=== PATIENT | male | born 1945 | race Caucasian/White ===

== ENCOUNTER 2017-05-04 14:57 | Emergency (ER) | payer MEDICARE, MEDICAID ==
[2017-05-04 14:59] VITALS: BP 174/85; PULSE 64; RESP 15; TEMP 98.2; O2SAT 98
--- NOTE | 2017-05-04 15:09 | PD ---
Physical Exam Date Seen by Provider: May 04, 2017 Time Seen by Provider: 15:04 Narrative Pt is a 72 year old male presenting to the ED for evaluation of BLE weakness. Pt states he was walking a his foot was dragging. He reports facial numbness, and a nose bleed this morning. VSS, awaiting bed placement. Data Data Last Documented VS Vital Signs Date Time Temp Pulse Resp B/P (MAP) Pulse Ox O2 Delivery O2 Flow Rate FiO2 05/04/17 14:59 98.2 64 15 174/85 (114) 98 MDM Supervised Visit with LISA: Alka Orta May 04, 2017 15:09
[2017-05-04] MEDS ORDERED: SODIUM CHLORIDE 0.9% FLUSH 10 ML FLUSH IVF PRN (15:30)
--- NOTE | 2017-05-04 15:42 | PD ---
HPI Chief Complaint: Neuro Symptoms/ Deficits Time Seen by Provider: 15:11 Travel History International Travel<30 days: No Contact w/Intl Traveler<30days: No Traveled to known affect area: No History of Present Illness HPI The patient is a 72-year-old male who presents to the emergency department for multiple complaints. The patient is currently visiting family from [place]. The patient states that on Thursday he was walking when he suddenly developed left-sided foot drop, this resolved. He then had right sided foot drop or his right foot caught several times, this then resolved. The patient states on Thursday he then developed a bloody nose which resolved on its own. The patient then complained of tinnitus from both ears which has resolved. The patient then felt like he had some numbness to the right side of the face and above the right eye which has persisted. The patient's daughter called his physician in [place] who recommended he come to the emergency department and be evaluated for a stroke. The patient does have a history of CAD with previous surgery as well as carotid stenosis at 69% per his report. The patient denies any acute weakness of the upper or lower extremities today, states his other symptoms have resolved except for the right facial numbness. Symptoms are mild to moderate, there are no current alleviating or exacerbating factors. PFSH Past Medical History Narrative Medical Hypertension, hyperlipidemia, diabetes, valve replacement Hx Anticoagulant Therapy: Yes Cardiovascular Problems: Yes Past Surgical History Narrative Surgical Valve replacement Social History Tobacco Use: No Allergies-Medications (Allergen,Severity, Reaction): Coded Allergies: No Known Allergies (Unverified , 05/04/17) Reported Meds & Prescriptions Reported Meds & Active Scripts Active Reported Glimepiride 4 Mg Tab 4 Mg PO DAILY Take with breakfast or first main meal Clopidogrel (Clopidogrel Bisulfate) 75 Mg Tab 75 Mg PO DAILY Isosorbide Mononitrate 20 Mg Tab 30 Mg PO DAILY Take 2 doses 7 hours apart. Pantoprazole (Pantoprazole Sodium) 40 Mg Tab 40 Mg PO DAILY Pravastatin 40 Mg Tab 40 Mg PO DAILY Metformin (Metformin HCl) 1,000 Mg Tab 1,000 Mg PO BIDPC With meals Tamsulosin (Tamsulosin HCl) 0.4 Mg Cap 0.4 Mg PO HS Metoprolol Tartrate 50 Mg Tab 50 Mg PO DAILY Vitamin D-1000 (Cholecalciferol) 1,000 Unit Tab 2,000 Units PO DAILY Aspirin Low Dose (Aspirin) 81 Mg Chew 81 Mg CHEW DAILY Review of Systems Except as stated in HPI: all other systems reviewed are Neg Eyes: No: Blurred Vision, Visual changes HENT: No: Headaches, Lightheadedness Cardiovascular: No: Chest Pain or Discomfort Respiratory: No: Shortness of Breath Gastrointestinal: No: Nausea, Vomiting, Abdominal Pain Neurologic: Positive: Paresthesia, Sensory Disturbance, No: Weakness, Change in Mentation, Slurred Speech Physical Exam Narrative GENERAL: Awake, alert, pleasant 72-year-old male who appears his stated age and is in no acute respiratory distress. SKIN: Focused skin assessment warm/dry. HEAD: Atraumatic. Normocephalic. EYES: Pupils equal and round. Pupils are 4 mm bilateral and reactive. EOMs are intact. Patient is able to see fingers at a distance of 2 feet without difficulty. ENT: No nasal bleeding or discharge. Mucous membranes pink and moist. No current epistaxis noted. NECK: Trachea midline. No JVD. CARDIOVASCULAR: Regular rate and rhythm. No murmur appreciated. RESPIRATORY: No accessory muscle use. Clear to auscultation. Breath sounds equal bilaterally. GASTROINTESTINAL: Abdomen soft, non-tender, nondistended. No rebound tenderness. MUSCULOSKELETAL: No obvious deformities. No clubbing. No cyanosis. No edema. NEUROLOGICAL: Awake and alert. No obvious cranial nerve deficits. Motor grossly within normal limits. Normal speech. EOMs are intact. Pupils equal round reactive to light. Smile is symmetric. Patient is able to raise his eyebrows symmetrically. No drift of the upper or lower extremities. Finger to nose is normal. Cxnu-pa-finv is normal. Visual jeong are symmetric. Sensation is symmetric on the face in the V1, V2, and V3 distribution. Sensation is symmetric on the arms bilaterally. Sensation is slightly diminished on the left lower extremity with soft touch compared to the right, patient is unsure if this is acute. PSYCHIATRIC: Appropriate mood and affect; insight and judgment normal. Data Data Last Documented VS Vital Signs Date Time Temp Pulse Resp B/P (MAP) Pulse Ox O2 Delivery O2 Flow Rate FiO2 05/04/17 14:59 98.2 64 15 174/85 (114) 98 Orders Orders Electrocardiogram (05/04/17 15:26) Prothrombin Time / Inr (Pt) (05/04/17 15:26) Act Partial Throm Time (Ptt) (05/04/17 15:26) Complete Blood Count With Diff (05/04/17 15:26) Comprehensive Metabolic Panel (05/04/17 15:26) Creatine Kinase (Cpk) (05/04/17 15:26) Troponin I (05/04/17 15:26) Ct Brain W/O Iv Contrast(Rout) (05/04/17 15:26) Ecg Monitoring (05/04/17 15:26) Iv Access Insert/Monitor (05/04/17 15:26) Oximetry (05/04/17 15:26) Sodium Chloride 0.9% Flush (Ns Flush) (05/04/17 15:30) Mri Brain W/O Contrast (05/04/17 ) Labs Laboratory Tests Test 05/04/17 15:55 White Blood Count 7.1 TH/MM3 Red Blood Count 4.63 MIL/MM3 Hemoglobin 13.7 GM/DL Hematocrit 41.1 % Mean Corpuscular Volume 88.8 FL Mean Corpuscular Hemoglobin 29.5 PG Mean Corpuscular Hemoglobin Concent 33.3 % Red Cell Distribution Width 13.2 % Platelet Count 198 TH/MM3 Mean Platelet Volume 8.4 FL Neutrophils (%) (Auto) 64.4 % Lymphocytes (%) (Auto) 26.8 % Monocytes (%) (Auto) 6.5 % Eosinophils (%) (Auto) 1.6 % Basophils (%) (Auto) 0.7 % Neutrophils # (Auto) 4.6 TH/MM3 Lymphocytes # (Auto) 1.9 TH/MM3 Monocytes # (Auto) 0.5 TH/MM3 Eosinophils # (Auto) 0.1 TH/MM3 Basophils # (Auto) 0.1 TH/MM3 CBC Comment DIFF FINAL Differential Comment Prothrombin Time 12.0 SEC Prothromb Time International Ratio 1.1 RATIO Activated Partial Thromboplast Time 26.4 SEC Blood Urea Nitrogen 23 MG/DL Creatinine 0.95 MG/DL Random Glucose 210 MG/DL Total Protein 6.5 GM/DL Albumin 3.6 GM/DL Calcium Level 8.3 MG/DL Alkaline Phosphatase 66 U/L Aspartate Amino Transf (AST/SGOT) 18 U/L Alanine Aminotransferase (ALT/SGPT) 28 U/L Total Bilirubin 0.4 MG/DL Sodium Level 137 MEQ/L Potassium Level 3.9 MEQ/L Chloride Level 106 MEQ/L Carbon Dioxide Level 24.3 MEQ/L Anion Gap 7 MEQ/L Estimat Glomerular Filtration Rate 78 ML/MIN Total Creatine Kinase 88 U/L Troponin I LESS THAN 0.02 NG/ML [facility] Medical Decision Making Medical Screen Exam Complete: Yes Emergency Medical Condition: Yes Medical Record Reviewed: Yes Interpretation(s) CT the brain is negative for an acute process MRI of the brain is negative for an acute ischemic event Laboratory Tests Test 05/04/17 15:55 White Blood Count 7.1 TH/MM3 Red Blood Count 4.63 MIL/MM3 Hemoglobin 13.7 GM/DL Hematocrit 41.1 % Mean Corpuscular Volume 88.8 FL Mean Corpuscular Hemoglobin 29.5 PG Mean Corpuscular Hemoglobin Concent 33.3 % Red Cell Distribution Width 13.2 % Platelet Count 198 TH/MM3 Mean Platelet Volume 8.4 FL Neutrophils (%) (Auto) 64.4 % Lymphocytes (%) (Auto) 26.8 % Monocytes (%) (Auto) 6.5 % Eosinophils (%) (Auto) 1.6 % Basophils (%) (Auto) 0.7 % Neutrophils # (Auto) 4.6 TH/MM3 Lymphocytes # (Auto) 1.9 TH/MM3 Monocytes # (Auto) 0.5 TH/MM3 Eosinophils # (Auto) 0.1 TH/MM3 Basophils # (Auto) 0.1 TH/MM3 CBC Comment DIFF FINAL Differential Comment Prothrombin Time 12.0 SEC Prothromb Time International Ratio 1.1 RATIO Activated Partial Thromboplast Time 26.4 SEC Blood Urea Nitrogen 23 MG/DL Creatinine 0.95 MG/DL Random Glucose 210 MG/DL Total Protein 6.5 GM/DL Albumin 3.6 GM/DL Calcium Level 8.3 MG/DL Alkaline Phosphatase 66 U/L Aspartate Amino Transf (AST/SGOT) 18 U/L Alanine Aminotransferase (ALT/SGPT) 28 U/L Total Bilirubin 0.4 MG/DL Sodium Level 137 MEQ/L Potassium Level 3.9 MEQ/L Chloride Level 106 MEQ/L Carbon Dioxide Level 24.3 MEQ/L Anion Gap 7 MEQ/L Estimat Glomerular Filtration Rate 78 ML/MIN Total Creatine Kinase 88 U/L Troponin I LESS THAN 0.02 NG/ML Differential Diagnosis Differential diagnosis includes CVA, TIA, hyponatremia, hypocalcemia, hypokalemia, hyperkalemia, transient focal neurologic deficit, hypoglycemia. Narrative Course IV was established, labs are drawn and sent, and the patient was placed on cardiac telemetry monitoring and continuous pulse oximetry monitoring. EKG was ordered and interpreted. Stat CT the brain was obtained and MRI of the brain was ordered. CT the brain was negative. MRI was ordered, no evidence for infarct. Physical examination findings are not consistent with Shultz's palsy. Patient states he has facial numbness on the right side, however, sensation is intact and symmetric. Patient is advised to follow-up with primary physician. Continue his current treatment with Plavix. He will be provided a copy of his CT results and MRI results at discharge. Diagnosis Primary Impression: Rt facial numbness Patient Instructions: General Instructions Additional Instructions: Please provide the patient a copy of his MRI results, CT results, and lab results at discharge. Continue current medications as previously directed. Follow-up with your primary physician. Disposition: 01 DISCHARGE HOME Condition: Stable Kristofer Justin MD May 04, 2017 15:42
[2017-05-04 16:00] VITALS: BP 134/72; PULSE 82; RESP 20; O2SAT 98
[2017-05-04 16:05] LABS: AUTOMATED NEUTROPHIL # 4.6 TH/MM3 (1.8-7.7); BASOPHIL # 0.1 TH/MM3 (0-0.2); BASOPHIL % 0.7 % (0.0-2.0); EOSINOPHIL # 0.1 TH/MM3 (0-0.4); EOSINOPHIL % 1.6 % (0.0-4.0); HEMATOCRIT 41.1 % (39.0-51.0); HEMO FLAGS DIFF FINAL; LYMPH % 26.8 % (9.0-44.0); LYMPHOCYTE # 1.9 TH/MM3 (1.0-4.8); MEAN CELL VOLUME 88.8 FL (80.0-100.0); MEAN CORPUSCULAR HEMOGLOBIN 29.5 PG (27.0-34.0); MEAN CORPUSCULAR HGB CONC 33.3 % (32.0-36.0); MONO % 6.5 % (0.0-8.0); NEUT % 64.4 % (16.0-70.0); PLATELET COUNT 198 TH/MM3 (150-450); RED BLOOD COUNT 4.63 MIL/MM3 (4.50-5.90); RED CELL DISTRIBUTION WIDTH 13.2 % (11.6-17.2); WHITE BLOOD COUNT 7.1 TH/MM3 (4.0-11.0)
[2017-05-04 16:20] LABS: APTT (PATIENT) 26.4 SEC (24.3-30.1); INTERNATIONAL NORMALIZED RATIO 1.1 RATIO
[2017-05-04 16:23] LABS: ANION GAP 7 MEQ/L (5-15); AST (GOT) 18 U/L (15-37); BICARBONATE 24.3 MEQ/L (21.0-32.0); BLOOD UREA NITROGEN 23 MG/DL (7-18); CHLORIDE 106 MEQ/L (98-107); GLOMERULAR FILTRATION RATE 78 ML/MIN (>89); POTASSIUM 3.9 MEQ/L (3.5-5.1); SODIUM (NA) 137 MEQ/L (136-145)
[2017-05-04 16:24] LABS: ALT (GPT) 28 U/L (12-78)
[2017-05-04 16:28] LABS: ALKALINE PHOSPHATASE 66 U/L (45-117); TOTAL BILIRUBIN ADULT 0.4 MG/DL (0.2-1.0)
[2017-05-04 16:40] LABS: CREATINE KINASE 88 U/L (39-308)
--- NOTE | 2017-05-04 17:21 | RADRPT ---
EXAM DATE/TIME: 05/04/2017 16:48 [facility] COMPARISON: No previous studies available for comparison. INDICATIONS : Right side facial paralysis. RADIATION DOSE: 56.35 CTDIvol (mGy) MEDICAL HISTORY : Cardiovascular disease. SURGICAL HISTORY : None. ENCOUNTER: Initial ACUITY: 1 day PAIN SCALE: 0/10 LOCATION: cranial TECHNIQUE: Multiple contiguous axial images were obtained of the head. Using automated exposure control and adj ustment of the mA and/or kV according to patient size, radiation dose was kept as low as reasonably a chievable to obtain optimal diagnostic quality images. DICOM format image data is available electro nically for review and comparison. FINDINGS: CEREBRUM: The ventricles are normal for age. No evidence of midline shift, mass lesion, hemorrhage or acute in farction. No extra-axial fluid collections are seen. POSTERIOR FOSSA: The cerebellum and brainstem are intact. The 4th ventricle is midline. The cerebellopontine angle i s unremarkable. EXTRACRANIAL: The visualized portion of the orbits is intact. SKULL: The calvaria is intact. No evidence of skull fracture. CONCLUSION: Negative for an acute process. Jamin Alvarez MD FACR on May 04, 2017 at 17:18 Board Certified Radiologist. This report was verified electronically.
[2017-05-04] MEDS ORDERED: METF1000 PO (17:22)
[2017-05-04] MEDS ORDERED: METO50TA PO (17:22)
[2017-05-04] MEDS ORDERED: PRAV40TA2 PO (17:22)
[2017-05-04] MEDS ORDERED: GLIM4TAB PO (17:22)
[2017-05-04] MEDS ORDERED: VITA1000 PO (17:22)
[2017-05-04] MEDS ORDERED: CLOP75TA PO (17:22)
[2017-05-04] MEDS ORDERED: ASPI81CH37 CHEW (17:22)
[2017-05-04] MEDS ORDERED: PANT40TA3 PO (17:22)
[2017-05-04] MEDS ORDERED: TAMS0.4C4 PO (17:22)
[2017-05-04] MEDS ORDERED: ISOS20TA PO (17:22)
--- NOTE | 2017-05-04 17:39 | RADRPT ---
EXAM DATE/TIME: 05/04/2017 17:03 [facility] COMPARISON: No previous studies available for comparison. INDICATIONS : CVA. Numbness, right side of face. MEDICAL HISTORY : Hypertension. Diabetes. SURGICAL HISTORY : Cardiac valve replacement. Femoral stent. ENCOUNTER: Subsequent ACUITY: 1 day PAIN SCORE: 3/10 LOCATION: cranial TECHNIQUE: Multiplanar, multisequence MRI of the brain was performed without contrast. FINDINGS: CEREBRUM: The ventricles are normal for age. No evidence of midline shift, mass lesion, hemorrhage or acute in farction. No extraaxial fluid collections are seen. The pituitary gland and suprasellar cistern are normal in configuration. WHITE MATTER: No significant signal abnormalities are seen in the white matter. POSTERIOR FOSSA: The cerebellum and brainstem are intact. The 4th ventricle is midline. The cerebellopontine angle is unremarkable. The cerebellar tonsils are normal in position. DIFFUSION IMAGING: No focal areas of restricted diffusion are seen. No evidence of acute infarction. EXTRACRANIAL: The visualized portions of the orbits and paranasal sinuses are unremarkable. CONCLUSION: Negative MRI of the brain for acute ischemic event. Jamin Alvarez MD FACR on May 04, 2017 at 17:36 Board Certified Radiologist. This report was verified electronically.
[2017-05-04 18:55] VITALS: BP 137/86
--- NOTE | 2017-05-05 15:49 | EKG ---
Date Performed: 05/04/2017 Time Performed: 15:45:59 PTAGE: 72 years EKG: SINUS BRADYCARDIA LEFT VENTRICULAR HYPERTROPHY AND ST-T CHANGE ABNORMAL ECG PREVIOUS TRACING : 06/21/1996 07.33 Since the prior tracing, the patient has developed changes suggestive of left ventricular hypertrophy including QRS widening and possible left atrial enlargemen t. Clinical correlation is advised to assess the etiology of these serial changes. DOCTOR: Mandy Hubbard Interpretating Date/Time 05/05/2017 15:47:57
== END 2017-05-04 19:00 | disposition home or self-care (01) ==
LOC: NEPC 14:57 → EDBD 14:57 → NEPC 19:00
DX: R20.0 Anesthesia of skin (principal); R94.31 Abnormal electrocardiogram [ECG] [EKG]; I10 Essential (primary) hypertension; E78.5 Hyperlipidemia, unspecified; E11.9 Type 2 diabetes mellitus without complications; Z79.01 Long term (current) use of anticoagulants; Z79.84 Long term (current) use of oral hypoglycemic drugs; Z95.2 Presence of prosthetic heart valve; Z86.79 Personal history of other diseases of the circulatory system
CPT/HCPCS: 70450; 70551; 80053; 82550; 84484; 85025; 85610; 85730; 93005; 99285